=== PATIENT | male | born 1945 | race Caucasian/White ===

== ENCOUNTER 2017-03-31 10:57 | Emergency (ER) | payer OTHER ==
[~2017-03-31] VITALS: Ht 167.6 cm; Wt 74.8 kg
--- NOTE | 2017-03-31 10:57 | NUR ---
BB RA FROM HOME FOR ALOC AT HOME WITH BS ON FIELD 45. D10 GIVEN IN FIELD. PT AAO X4 ON ARRIVAL. NAD NOTED. PT PLACED IN MONITOR. DR CORTEZ AT BEDSIDE FOR EVAL.
[2017-03-31 11:15] LABS: BASOPHILS # (AUTO) 0.2 /CMM (0.0-0.2); BASOPHILS % (AUTO) 3.9 % (0.0-2.0); EOSINOPHILS % (AUTO) 0.7 % (0.0-6.0); HEMATOCRIT 38 % (39-51); HEMOGLOBIN 12.3 g/dL (13.5-17.5); LYMPHOCYTES # (AUTO) 1.1 /CMM (0.8-4.8); LYMPHOCYTES % (AUTO) 22.4 % (20.0-44.0); MEAN CORPUSCULAR HEMOGLOBIN 26 PG (26.0-33.0); MEAN CORPUSCULAR HGB CONC 33 g/dl (31.0-36.0); MEAN CORPUSCULAR VOLUME 80 fL (80-96); MONOCYTES # (AUTO) 0.1 /CMM (0.1-1.30); MONOCYTES % (AUTO) 2.1 % (2.0-12.0); NEUTROPHILS # (AUTO) 3.6 /CMM (1.8-8.9); NEUTROPHILS % (AUTO) 70.9 % (43.0-81.0); PLATELET COUNT (AUTO) 134 /CMM (150-450); RDW COEFFICIENT OF VARIATION 15.6 (11.5-15.0); RED BLOOD CELL COUNT(AUTO) 4.73 MIL/uL (4.5-6.0)
[2017-03-31 11:27] LABS: CALCIUM, SERUM 8.6 mg/dL (8.5-10.1); CARBON DIOXIDE 25 mmol/L (21-32); CHLORIDE 104 mmol/L (98-107); GLUCOSE 142 mg/dL (74-106); POTASSIUM 4.1 mmol/L (3.5-5.1); SODIUM SERUM 138 mmol/L (136-145); UREA NITROGEN, BLOOD 19 mg/dL (7-18)
[2017-03-31] MEDS ORDERED: IV NS 0.9% 500 ML BAG IV ONE (11:30)
[2017-03-31 11:33] LABS: ALANINE AMINOTRANSFERASE 69 U/L (12-78); ALBUMIN 2.7 g/dL (3.4-5.0); ALKALINE PHOSPHATASE 220 U/L (46-116); ASPARTATE AMINOTRANSFERASE 82 U/L (15-37); BILIRUBIN,DIRECT 0.4 mg/dL (0.0-0.2); BILIRUBIN,TOTAL 0.8 mg/dL (0.2-1.0); LIPASE 182 U/L (73-393); TOTAL PROTEIN, SERUM 6.4 g/dL (6.4-8.2)
[2017-03-31 11:35] LABS: TROPONIN I 0.017 ng/mL (0.00-0.056)
[2017-03-31 12:44] LABS: APPEARANCE,URINE Clear (CLEAR); BILIRUBIN,URINE SMALL (NEGATIVE); BLOOD, URINE Negative Ery/uL (NEGATIVE); COLOR,URINE Dark (YELLOW); KETONES,URINE Trace (NEGATIVE); LEUKOCYTE ESTERASE ,URINE Negative (NEGATIVE); NITRITE, URINE Negative (NEGATIVE); PROTEIN,URINE Negative (NEGATIVE); UGLUCOSE 100 MG/DL mg/dL (NEGATIVE); UROBILINOGEN,URINE >=8.0 EU/dL (0.2)
[2017-03-31 12:54] LABS: WBC,URINE 0-2 /HPF (0-3)
[2017-03-31 12:55] LABS: BACTERIA,URINE Rare /HPF (None Seen); RBC,URINE 0-2 /HPF (0-2); SQUAMOUS EPITHELIAL CELL,UR Rare /HPF (None Seen)
[2017-03-31 13:12] VITALS: BP 133/70
--- NOTE | 2017-03-31 13:13 | NUR ---
IV removed. Catheter intact and site benign. Pressure and 4x4 applied to site. No bleeding noted.Patient discharged to home in stable condition. Written and verbal after care instructions given. Patient verbalizes understanding of instruction. Ambulatory with steady gait. rr even and unlabored. vss. leaving with family member in stable condition via private car
--- NOTE | 2017-03-31 13:13 | NUR ---
BS 144. AWARE.
== END 2017-03-31 13:12 | disposition home or self-care (01) ==
LOC: ER 11:00
DX: E11.649 Type 2 diabetes mellitus with hypoglycemia without coma (principal); Z88.2 Allergy status to sulfonamides; Z88.8 Allergy status to other drugs, medicaments and biological substances
CPT/HCPCS: 36415; 71010; 80048; 80076; 81001; 82962 ×2; 83690; 84484; 85025; 93005; 99285; A4606; J7040; 81000-TC; Z7610

== ENCOUNTER 2017-04-22 16:22 | Emergency (ER) | payer OTHER ==
[~2017-04-22] VITALS: Ht 175.3 cm; Wt 90.7 kg
[2017-04-22] MEDS ORDERED: IV NS 0.9% 1,000 ML BAG IV ONE ×2 (16:30→18:30)
--- NOTE | 2017-04-22 16:35 | NUR ---
EDWINA FROM HOME DUE TO LOW BP. PATIENT RECEIVED AAO4. APPEARS IN NO ACUTE DISTRESS. RESPIRATION EVEN AND UNLABORED. SATING WELL ON ROOM AIR, PATIENT'S SKIN IS WARM TO TOUCH AND NON DIAPHORETIC. AFEBRILE/ VSS
[2017-04-22 16:52] LABS: BASOPHILS # (AUTO) 0.2 /CMM (0.0-0.2); BASOPHILS % (AUTO) 1.4 % (0.0-2.0); EOSINOPHILS # (AUTO) 0.1 /CMM (0.0-0.7); EOSINOPHILS % (AUTO) 0.4 % (0.0-6.0); HEMATOCRIT 40 % (39-51); HEMOGLOBIN 13.2 g/dL (13.5-17.5); LYMPHOCYTES # (AUTO) 3.8 /CMM (0.8-4.8); LYMPHOCYTES % (AUTO) 25.8 % (20.0-44.0); MEAN CORPUSCULAR HEMOGLOBIN 26 PG (26.0-33.0); MEAN CORPUSCULAR HGB CONC 33 g/dl (31.0-36.0); MEAN CORPUSCULAR VOLUME 79 fL (80-96); MONOCYTES # (AUTO) 0.8 /CMM (0.1-1.30); MONOCYTES % (AUTO) 5.6 % (2.0-12.0); NEUTROPHILS # (AUTO) 9.7 /CMM (1.8-8.9); NEUTROPHILS % (AUTO) 66.8 % (43.0-81.0); PLATELET COUNT (AUTO) 258 /CMM (150-450); RDW COEFFICIENT OF VARIATION 17.3 (11.5-15.0); RED BLOOD CELL COUNT(AUTO) 5.09 MIL/uL (4.5-6.0); WHITE BLOOD COUNT (AUTO) 14.6 K/uL (4.3-11.0)
--- NOTE | 2017-04-22 16:52 | NUR ---
CALLED [facility], SPOKE WITH DOCTOR NATUROPATHIC COLTEN. I PRESENTED PATIENT'S VSS, C/C AND WEIGHT. COLTEN WILL FAX OVER [facility]. ONCE PATIENT'S WORK UP IS COMPLETE WE WILL CALL [facility] WITH ANY PLANS TO ADMIT/TRANSFER/DISCHARGE.
[2017-04-22 17:11] LABS: ALANINE AMINOTRANSFERASE 90 U/L (12-78); ALBUMIN 2.1 g/dL (3.4-5.0); ALKALINE PHOSPHATASE 250 U/L (46-116); ASPARTATE AMINOTRANSFERASE 108 U/L (15-37); BILIRUBIN,DIRECT 0.7 mg/dL (0.0-0.2); CALCIUM, SERUM 7.8 mg/dL (8.5-10.1); CARBON DIOXIDE 27 mmol/L (21-32); CHLORIDE 100 mmol/L (98-107); CREATININE 2.6 mg/dL (0.6-1.3); GLUCOSE 84 mg/dL (74-106); INR 1.41 (0.87-1.13); POTASSIUM 4.3 mmol/L (3.5-5.1); SODIUM SERUM 136 mmol/L (136-145); TOTAL PROTEIN, SERUM 5.6 g/dL (6.4-8.2)
[2017-04-22 17:13] LABS: TROPONIN I 0.083 ng/mL (0.00-0.056)
[2017-04-22 17:16] LABS: UREA NITROGEN, BLOOD 83 mg/dL (7-18)
[2017-04-22 17:44] LABS: APPEARANCE,URINE Clear (CLEAR); BILIRUBIN,URINE Negative (NEGATIVE); BLOOD, URINE Moderate Ery/uL (NEGATIVE); COLOR,URINE Yellow (YELLOW); KETONES,URINE Negative (NEGATIVE); LEUKOCYTE ESTERASE ,URINE Negative (NEGATIVE); NITRITE, URINE Negative (NEGATIVE); PROTEIN,URINE Trace mg/dl (NEGATIVE); UGLUCOSE Negative (NEGATIVE)
[2017-04-22] MEDS ORDERED: IV NS 0.9% 500 ML BAG IV ONE (18:00)
[2017-04-22 18:09] LABS: BACTERIA,URINE Rare /HPF (None Seen); RBC,URINE 0-2 /HPF (0-2); SQUAMOUS EPITHELIAL CELL,UR Few /HPF (None Seen); WBC,URINE 0-2 /HPF (0-3)
--- NOTE | 2017-04-22 18:39 | NUR ---
CALLED [facility] I SPOKE WITH THREAD CUTTER HARMONY. I NOTIFIED HER THAT OUR ER PHYSICIAN IS READY TO PRESENT PATIENT.
[2017-04-22] MEDS ORDERED: VANCOMYCIN 1 GM in IV D5W 250 ML IV ONE (19:00)
[2017-04-22] MEDS ORDERED: MEROPENEM 1 G in IV NS 0.9% 100 ML IV ONE (19:00)
[2017-04-22 19:02] LABS: BAND % (MANUAL) 2 % (0.0-5.0); LYMPHOCYTES % (MANUAL) 30 % (16-48); MONOCYTES % (MANUAL) 4 % (0-11.0); MYELOCYTES % 1 % (0-0); NEUTROPHILS % (MANUAL) 63 (42-76)
--- NOTE | 2017-04-22 19:15 | NUR ---
REPORT GIVEN TO FRANCA BARILLAS FOR [facility]
--- NOTE | 2017-04-22 19:16 | NUR ---
Assumed care of pt. pt sitting up in bed w/ resp even & unlabored, denies any pain, no sob w/ nad noted. IV antibiotics continue to be infusing w/ pt on continuous monitoring. pt family at bedside.
--- NOTE | 2017-04-22 19:30 | NUR ---
PATIENT ACCEPTED AT [facility]. NUMBER FOR REPORT [id number]. DR AYLIN FINK ACCEPTING. ALS ETA 1 HOUR.
[2017-04-22] MEDS ORDERED: VANCOMYCIN 1 GM VIAL ONE (19:35)
[2017-04-22] MEDS ORDERED: ASPIRIN 81 MG TAB.CHEW PO ONE (20:00)
--- NOTE | 2017-04-22 20:38 | NUR ---
Report given to FRANCA Jonas at [facility] [phone] for [facility], pt transfer via [facility] ambulance. pt sitting up in bed w/ resp even & unlabored, no acute distress noted. On continuous monitoring w/ IV antibiotics infusing.
[2017-04-22] MEDS ORDERED: ASPIRIN 81 MG TAB.CHEW ONE (20:41)
--- NOTE | 2017-04-22 20:48 | NUR ---
Dr. Juárez updated on pt status. pt sitting up in bed w/ resp even & unlabored, denies any kessler, no dizziness, no pain, low bp at this time w/ no acute distress noted. On continuous monitoring.
[2017-04-22 21:02] VITALS: BP 109/54
--- NOTE | 2017-04-22 21:18 | NUR ---
Report given to MARY Rose EMT for pt transport to [facility] via [facility] ambulance.
== END 2017-04-22 21:30 | disposition short-term general hospital (02) ==
LOC: ER 16:23
DX: A41.9 Sepsis, unspecified organism (principal); C78.7 Secondary malignant neoplasm of liver and intrahepatic bile duct; I25.10 Atherosclerotic heart disease of native coronary artery without angina pectoris; I25.2 Old myocardial infarction; I10 Essential (primary) hypertension; E86.0 Dehydration; R65.21 Severe sepsis with septic shock; N17.9 Acute kidney failure, unspecified; J90 Pleural effusion, not elsewhere classified; Z79.4 Long term (current) use of insulin; Z92.21 Personal history of antineoplastic chemotherapy; Z88.2 Allergy status to sulfonamides; Z88.8 Allergy status to other drugs, medicaments and biological substances
CPT/HCPCS: 36415; 71010; 80048; 80076; 81001; 83605 ×2; 83690; 84484; 85025; 85730; 87040 ×2; 87086; 93005; 96361; 96365; 96368; 99291; A4606; J2185; J3370; J7030 ×3; J7040; J7060; 81000-TC; Z7610